=== PATIENT | female | born 1990 | race African-American/Black ===

== ENCOUNTER 2017-05-29 12:51 | Emergency (ER) | payer OTHER ==
[2017-05-29 12:58] VITALS: BP 130/81; BMI 31.7
[2017-05-29] MEDS ORDERED: NEOSPORIN OINT ONE (13:28)
[2017-05-29] MEDS ORDERED: PRELONE Elixir 15 MG UDC ONE (13:29)
[2017-05-29] MEDS ORDERED: HYDROGEN PEROXIDE 3% ONE (13:34)
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
== END 2017-05-29 14:13 | disposition home or self-care (01) ==
LOC: ER 13:16
DX: Z04.3 Encounter for examination and observation following other accident (principal); V89.2XXA Person injured in unspecified motor-vehicle accident, traffic, initial encounter
CPT/HCPCS: 71010; 73130; 99282; 99283